=== PATIENT | male | born 1965 | race Caucasian/White ===

== ENCOUNTER → 2024-06-19 12:15 | Outpatient (REF) | payer BC, SELFPAY | LOC: DHSLP 12:15 | PROVIDERS: ATTENDING PHYSICIAN Internal Medicine Cardiovascular Disease; FAMILY PHYSICIAN Family Medicine | DX: G47.33 Obstructive sleep apnea (adult) (pediatric) (principal) | CPT/HCPCS: 95800 ==

== ENCOUNTER 2024-08-23 05:53 | Day surgery (SDC) | payer BC, SELFPAY ==
[2024-08-12 10:15] VITALS: BMI 31.6
[2024-08-12 10:42] LABS: % Basophils 0.6 % (0-2); % Eosinophils 3.2 % (0-6); % Immature Granulocytes 0.2 % (0-0.5); % Lymphocytes 22.2 % (20.5-51.1); % Monocytes 9.2 % (1.7-9.3); % Neutrophils 64.6 % (42.2-75.2); Absolute Eosinophils 0.2 10^3/uL (0-0.7); Absolute Lymphocytes 1.4 10^3/uL (1.2-3.4); Absolute Monocytes 0.6 10^3/uL (0.1-0.6); Hematocrit 42.2 % (39.0-52.0); Hemoglobin 14.4 g/dL (13.0-18.0); Mean Corp Hgb Conc. 34.1 g/dL (33.0-37.0); Mean Corpuscular Hgb 29.9 pg (27.0-31.0); Mean Corpuscular Volume 87.6 fL (80.0-94.0); Mean Platelet Volume 9.4 fL (7.4-10.4); Nucleated Red Blood Cells % 0 % (-); Platelet Count 166 10^3/uL (130-400); Red Blood Cell Count 4.82 10^6/uL (4.70-6.10); Red Cell Dist. Width 12.4 % (11.5-14.5); White Blood Cell Count 6.2 10^3/uL (4.8-10.8)
[2024-08-12 11:01] LABS: ALT (SGPT) 32 U/L (0-50); AST (SGOT) 21 U/L (17-59); Albumin 4.6 g/dl (3.5-5.0); Alkaline Phosphatase 70 U/L (38-126); Blood Urea Nitrogen 22 mg/dl (9-20); Calcium 9.4 mg/dl (8.4-10.2); Carbon Dioxide 31 mmol/L (22-30); Chloride 103 mmol/L (98-107); Estimated Creatinine Clearance 119 ml/min; Glucose 96 mg/dl (70-99); Magnesium 2.2 mg/dl (1.6-2.3); Potassium 4.7 mmol/L (3.5-5.1); Sodium 142 mmol/L (135-145); eGFR > 60.00
[2024-08-12 11:02] LABS: PT 13.5 Sec (11.4-14.6)
--- NOTE | 2024-08-12 11:37 | HPS.HSE ---
Family Physician
-
Family Physician: Manjula Russell,
Chief Complaint
-
Paroxysmal atrial fibrillation.
History of Present Illness
The patient is a 58-year-old male presenting today for paroxysmal atrial fibrillation. The patient reports exertional shortness of breath and decreased exercise tolerance associated with his arrhythmia. He is on current pharmacological
therapy with Metoprolol Succinate. Unfortunately, rate controlling options have been limited due to his overall low heart rate. He reports he has been compliant with Eliquis for oral anticoagulation due to a [id number] of 3. He notes that his
current symptoms greatly interfere with his activities of daily living and overall impact his quality of life. He is interested in pursuing with pulmonary vein isolation for further arrhythmia management. He denies any current complaints today such
as chest pain and shortness of breath at rest, nausea, vomiting, diarrhea, lightheadedness, dizziness, cough, sore throat, or fever.
Medical History
Past Medical History
Past Medical History: Reports Other
Additional Past Medical History:
1. Paroxysmal atrial fibrillation, pharmacological therapy with Metoprolol Succinate and oral anticoagulation with Eliquis.
2. White coat hypertension.
3. Hyperlipidemia.
4. Coronary artery disease, status post PCI with drug-eluting stent to LAD 03/2022.
5. Sinus bradycardia.
6. Left anterior fascicular block.
7. Left lower extremity DVT and pulmonary embolism, unprovoked, treated with Coumadin 2009.
8. Sarcoidosis, status post treatment; in remission since 2019.
9. Newly diagnosed obstructive sleep apnea, compliant with CPAP.
10. GERD.
11. Colon polyps.
12. Diverticulosis.
13. Nephrolithiasis.
14. Hemorrhoids.
15. Benign paroxysmal positional vertigo.
16. Osteoarthritis.
17. Obesity, BMI 31.6.
18. Remote history of tobacco abuse.
Past Surgical History: Reports Other
Additional Past Surgical History:
1. PCI with drug-eluting stent to LAD.
2. Left hand tendon repair.
3. Lymph node biopsy.
4. Hemorrhoidectomy.
5. Colonoscopy x5.
Social History
Tobacco: Former Smoker (He reports cigarette smoking in his teenage years. He is a former, occasional cigar smoker who quit smoking cigars in 2005. )
Alcohol: Other (Social, mostly on weekends. )
Personal:
Living: Other (He lives with his in a 1 story, 2nd floor apartment.)
Family History
Family History: Not pertinent
Allergies / Home Medications
Allergy/Medication List:
Home medications:
1. Apixaban 5 mg p.o. twice a day.
2. Atorvastatin 40 mg p.o. every evening.
3. CoQ10 200 mg p.o. at bedtime.
4. Metoprolol Succinate 25 mg p.o. twice a day.
5. [place] 3 Fish Oil 2180 mg p.o. daily.
Allergies: Codeine.
Review of Systems
-
A 12 point ROS was completed and negative except as noted: Yes
Physical Exam
Vital Signs
Blood pressure 142/86. Heart rate 46. Respirations 18. Pulse ox 100% on room air.
Height 6 feet, 2 inches. Weight 111.7 kg. BMI 31.6.
Physical Exam
General: Well Developed, Well Nourished and No Apparent Distress
HEENT: NormoCephalic, Moist mucous membranes, Atraumatic and PERRLA
Respiratory: Clear
Cardiac: Bradycardia
GI: Soft, Non Tender, Non Distended and Other (Obese. )
Musculoskeletal: No Edema and Normal Gait & Station
Skin: Warm and Dry
Neuro: AO x 3 and Nonfocal/grossly intact
Laboratory Results
-
08/12/24 10:22
08/12/24 10:22
Laboratory Results
PT 13.5 Sec (11.4-14.6) 08/12/24 10:22
INR 1.00 08/12/24 10:22
Total Bilirubin 1.0 mg/dl (0.2-1.3) 08/12/24 10:22
AST 21 U/L (17-59) 08/12/24 10:22
ALT 32 U/L (0-50) 08/12/24 10:22
Alkaline Phosphatase 70 U/L (38-126) 08/12/24 10:22
Type and screen A positive.
EKG 08/12/2024: Sinus bradycardia. Left anterior fascicular block. Minimal voltage criteria for LVH, may be normal variant. Compared to the prior EKG of 03/30/2022, no significant change was found.
Chest CT 08/12/2024: Short segment common vestibule for the left superior and inferior pulmonary veins, fairly commonly seen and considered normal variant. No evidence for left atrial thrombus.
Impression/Plan
-
IMPRESSION/PLAN:
1. Paroxysmal atrial fibrillation: The patient is in need of pulmonary vein isolation with Dr. Bassam Stallworth on 08/23/2024. The benefits and risks of the procedure have been explained to the patient. The patient understands these risks and wishes to
proceed. He will not be required to undergo a pre-procedural transesophageal echocardiogram as he has been compliant with his home oral anticoagulation. He is aware to continue his Eliquis uninterrupted prior to his upcoming procedure. He will take
no medications the morning of his ablation.
[2024-08-23] VITALS (30 sets, daily range): BP systolic 121–151; BP diastolic 71–85; BMI 32.3
[2024-08-23] MEDS: TYLENOL 1000 MG PO (07:00)
--- NOTE | 2024-08-23 07:45 | ITS.CL.ABL ---
Supervisor [employer] - Ablation
Ablation
Procedure Report:
Primary Scaffold Erector: Dominik Galeana DO
Procedure Date: 08/23/2024
Patient History:
Patient is a very pleasant 58-year-old male with a past medical history significant for CAD status post PCI 2021, history of PE, dyslipidemia, pulmonary sarcoidosis status posttreatment and cleared 2019, paroxysmal symptomatic atrial fibrillation.
See H&P for complete details.
Indication:
Symptomatic paroxysmal atrial fibrillation
Arrhythmia Specific History:
Prior Medical Therapies for Rate and Rhythm Control:
X Beta-zeina
[ ] Calcium channel-zeina
[ ] Amiodarone
[ ] Dronederone
[ ] Sotalol
[ ] Flecainide
[ ] Dofetilide
X Options limited by bradycardia
[ ] Options limited by comorbid renal disease
Prior Procedural Therapies for AF/AFL:
[ ] Cardioversion
[ ] Pulmonary Vein Isolation
[ ] Posterior Wall Isolation
[ ] Additional lines (Specify)
[ ] Surgical Daigle-MAZE or PVI (Specify)
Procedure Performed:
X AF ablation procedure (21295) -- includes LA/CS pacing, trans-septal, 3D mapping, + ICE
[ ] +IV drug (26796)
[ ] +Other Arrhythmia (35166)
[ ] +Other AF Line/ablation (31112)
Risks and expected recovery has been explained in detail. Alternative options have been explored, and in a shared-decision making fashion we have decided that this was the most appropriate procedure.
Method
NPO status confirmed. Grounding pad applied. Defibrillator pads applied. Continuous surface ECG, pulse oximetry, and blood pressure were monitored. Procedure was performed under general anesthesia, with anesthesia services.
Both groins were clipped, prepped with Chloraprep, and draped in sterile fashion. Time out was called. Local anesthesia administered with bupivacaine. The right femoral vein was accessed for catheter placement, using ultrasound guidance (images
saved to record), micro-puncture needle/wire, and modified seldinger technique. 3 sheaths were placed. The following catheters were used:
[ ] Tacticath SE (D/F Curve) ablation catheter
X Viewflex 9Fr ICE catheter
X Inquiry decapolar 6Fr diagnostic catheter
[ ] CRD Hex 6Fr
[ ] Arctic Front Advance Cryoballoon ([ ]28mm[ ]23mm)
[ ] Achieve Advance mapping catheter ([ ]15mm[ ]20mm)
X FlexCath Contour 10 Fr with PulseSelect PFA Catheter
X Advisor HD Grid Mapping Catheter, SE
[ ] Acuson AcuNav 8 Fr ICE catheter
[ ]Other: [ ]
Intracardiac ultrasound (ICE) was carefully advanced into the right atrium to guide sheath placement over a J-wire, catheter placement, guide trans-septal puncture, identify potential complications, identify anatomic structures and ensure proper
contact between ablation catheter and tissue.
Heparin was given prior to trans-septal puncture. Heparin was given to achieve and maintain a target ACT of 300-400 seconds throughout the procedure.
Trans-septal access was performed under ICE guidance. The trans-septal puncture was performed with a SafeSept wire through a Brockenbrough needle assembly through the steerable sheath. The wire was visualized as it entered the LSPV and system
advanced under ICE guidance and fluoroscopy into the LA. The Brockenbrough needle assembly, SafeSept wire and sheath dilator were removed under negative pressure. LA pressure was measured and recorded.
ICE and 3D mapping was performed to identify relevant cardiac structures. A careful 3D map was created to assess for regions of low-voltage and abnormal electrogram signals using HD grid mapping catheter and PulseSelect catheter. Additional mapping
was performed as outlined below.
Prior to ablation, glycopyrrolate was provided. PulseSelect catheter was advanced over J-wire to the ostium of each vein. Pulmonary vein isolation was performed with ostial and antral lesions in a circumferential manner. Contact was visualized via
EAM, ICE, fluoroscopy, and EGM signals. Following completion of ablation lesions, a post-ablation voltage/activation map was performed in sinus rhythm. Entrance and exit block were confirmed for each vein. However, the left superior vein appeared
to be acutely reconnected on the posterior wall aspect of the left superior vein ostium. Pulse select catheter reintroduced in the left atrium and ablation performed. Repeat electroanatomic mapping in sinus rhythm with a HD grid mapping catheter
demonstrated entrance and exit block for each vein (pulmonary vein isolation).
Catheter and sheath were removed from the left atrium and post-ablation intracardiac echo evaluation was consistent with pre-ablation with no changes and no pericardial effusion and there is no left atrial thrombus or left ventricle thrombus seen.
Electrophysiology study was performed. Hemostasis was obtained with figure of 8 stitch for each groin and with manual pressure. Protamine was used for reversal.
Estimated Blood Loss
5 mL
Complications
None
Fluoroscopy: 2.0 minutes; 18.12 mGy; DAP 2.44
Baseline Intervals:
Rhythm: Sinus rhythm
DE: 170 ms
QRS: 106 ms
QT: 411 ms
QTc: 415 ms
Post-Procedure Intervals:
DE: 159 ms
QRS: 117 ms
QT: 412 ms
QTc: 415 ms
AVWB: 380 ms
AVNERP: 600/350 ms
Recommendations
- Bedrest with straight-leg precautions as ordered
- Anticipate same day discharge if patient meeting clinical metrics
- Resume home medications as indicated
- Ok to resume anticoagulation tonight if patient and groin sites stable
- PPI daily for 30 days
- Plan for follow-up in office as scheduled
Bassam Stallworth DO
Clinical Cardiac Pharmacy Innovation Assistant
cc: Dominik Galeana DO; Manjula Russell DO
[2024-08-23 08:30] LABS: ACT-LR - POC 219 Seconds (116-155)
[2024-08-23 08:40] LABS: ACT-LR - POC 363 Seconds (116-155)
[2024-08-23 08:54] LABS: ACT-LR - POC 327 Seconds (116-155)
[2024-08-23 09:17] LABS: ACT-LR - POC 351 Seconds (116-155)
[2024-08-23 09:36] LABS: ACT-LR - POC 340 Seconds (116-155)
[2024-08-23 09:45] LABS: ACT-LR - POC 245 Seconds (116-155)
--- NOTE | 2024-08-23 10:52 | PTCARENOTE ---
Dr Castillo at pt bedside speaking to pt about procedure results.
[2024-08-23] MEDS: ANESTHETIC LOZENGE 1 LOZENGE PO (11:00)
--- NOTE | 2024-08-23 12:03 | PTCARENOTE ---
bedside report received by Tali VALDEZ. Site c/d/i. pt w little discomfort in throat. Relief with Cepacol lozenge. No other complaints. Resting with family at bedside. Will continue to monitor.
--- NOTE | 2024-08-23 12:09 | PTCARENOTE ---
Ronda VALDEZ (original RN before Tali VALDEZ) back from break. Updated on pt.
--- NOTE | 2024-08-23 14:05 | W.PN.UPDATE ---
Update Note
Progress Note Update
58 yo WM s/p PVI (same day). He denies cp, sob, maye diet, mild sore throat, voiding, R fem c/d/i no HT, soft, EKG SB. He will resume Eliquis at home tonight. He will continue metoprolol and will add PPI for 30 days. Activity restrictions reviewed.
He will f/u Dr. Galeana in 1-2 mo. He is for d/c home after 230p if groin stable.
--- NOTE | 2024-08-23 14:20 | PTCARENOTE ---
While pt was standing next to stretcher in preparation to walk to the bathroom, pt began bleeding from right groin. Pt placed back in bed, manual pressure applied and pt placed back on color television console monitor. Manual pressure held x 10 minutes. Right groin
dressing removed. No bleeding, oozing, or hematoma noted. Dry, sterile 4x4 and tegaderm applied. Pt's at pt bedside. Analy Chavira MANAGER EM[employer]OYEE RELATIONS made aware. Will continue to monitor.
== END 2024-08-23 15:40 | disposition home or self-care (01) ==
LOC: CATH 05:53
PROVIDERS: ATTENDING PHYSICIAN Internal Medicine Cardiovascular Disease; FAMILY PHYSICIAN Family Medicine; OTHER PHYSICIAN Internal Medicine Cardiovascular Disease
DX: I48.0 Paroxysmal atrial fibrillation (principal); R06.02 Shortness of breath; Z79.899 Other long term (current) drug therapy; I10 Essential (primary) hypertension; D86.0 Sarcoidosis of lung; E78.5 Hyperlipidemia, unspecified; Z95.5 Presence of coronary angioplasty implant and graft; I25.10 Atherosclerotic heart disease of native coronary artery without angina pectoris; R00.1 Bradycardia, unspecified; I44.4 Left anterior fascicular block; G47.33 Obstructive sleep apnea (adult) (pediatric); K21.9 Gastro-esophageal reflux disease without esophagitis; Z86.0100 Personal history of colon polyps, unspecified; K57.90 Diverticulosis of intestine, part unspecified, without perforation or abscess without bleeding; N20.0 Calculus of kidney; Z87.19 Personal history of other diseases of the digestive system; H81.10 Benign paroxysmal vertigo, unspecified ear; M19.90 Unspecified osteoarthritis, unspecified site; E66.9 Obesity, unspecified; Z68.31 Body mass index [BMI] 31.0-31.9, adult; Z87.891 Personal history of nicotine dependence; Z79.01 Long term (current) use of anticoagulants; Z88.5 Allergy status to narcotic agent; Z86.718 Personal history of other venous thrombosis and embolism; Z86.711 Personal history of pulmonary embolism
CPT/HCPCS: C1732; C1894; C1733; C1769; C1759; 36415; 75572; 76937; 80053; 83735; 85025; 85347; 85610; 86850; 86900; 86901; 93005; 93656; C1766; Q9967